=== PATIENT | male | born 1950 | race Caucasian/White ===

== ENCOUNTER 2017-09-02 07:04 | Emergency (ER) | payer MEDICARE ==
[2017-09-02 07:18] VITALS: BP 136/81
--- NOTE | 2017-09-02 08:32 | RAD ---
Indication: Left ankle injury. 4 views of left ankle demonstrates no fracture. Ankle mortise is intact. Calcifications along the Achilles tendon is noted. IMPRESSION: Calcification along the Achilles tendon. No fracture is noted.
--- NOTE | 2017-09-02 08:33 | RAD ---
Indication: Left foot injury, medial pain. 3 views of left foot demonstrates no fracture. No other bone or joint abnormalities identified. There may BE early degenerative changes of the first metatarsophalangeal joint. IMPRESSION: Probable degenerative changes of the first metatarsophalangeal joint without evidence of fracture.
--- NOTE | 2017-09-02 08:34 | RAD ---
Indication: Medial tenderness. 2 views of the left lower leg demonstrates no fracture. No other bone or joint abnormality is identified. IMPRESSION: No fracture of the left lower leg is noted.
--- NOTE | 2017-09-02 09:22 | UC ---
Mendez Gilbert Rebecca, scribed for Raine Braswell DO on 09/02/17 at 0732 . Lower Extremity/Ankle HPI - HPI Summary HPI Summary: Pt is a 67 y/o M who presents to [facility] with a CC of L ankle pain s/p fall. Pt reports that last night at 2300 he tripped over a tree stump, causing him to fall, resulting in L ankle pain and abrasions to the left knee. Ankle pain is located primarily on the medial aspect. Confirms he is able to ambulate, though it is painful and currently pain is moderate, ranked 6/10. Sx aggravated by weight bearing, alleviated by rest, unchanged by movement. Denies significant pain on the left knee. Additionally c/o pruritic bites on his right arm for 2 days in a row, being noticed each morning. Also reports chronic Achilles tendon swelling with pain on the right side for ~1 year and that the left is starting to look similarly. Denies fever, chills, N/V, CP, SOB, dizziness, HANSEN. 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 Reports cleaning significantly yesterday and that today, he has no bites. Notes that he has flat feet, so he wears high-top boots with a molded orthotic. - History of Current Complaint Chief Complaint: UCLowerExtremity Stated Complaint: ANKLE INJURY Time Seen by Provider: 09/02/17 07:21 Hx Obtained From: Patient Onset/Duration: Lasting Days - Last night, Still Present Severity Currently: Moderate Pain Intensity: 6 Pain Scale Used: 0-10 Numeric Aggravating Factor(s): Ambulation Alleviating Factor(s): Rest Able to Bear Weight: Yes - With pain - Allergies/Home Medications Allergies/Adverse Reactions: Allergies Allergy/AdvReac Type Severity Reaction Status Date / Time ENVIRONMENTAL/HAYFEVER Allergy SNEEZING,CONGESTION, Uncoded 09/02/17 07:18 ITCHY WATERY EYES Home Medications: Home Medications Emtricitabine/Tenofov Alafenam [Descovy 200-25 mg] 1 tab PO DAILY 09/02/17 [ History Confirmed 09/02/17] Fluticasone NASAL SPRAY 50MCG* [Flonase NASAL SPRAY 50MCG*] 2 spray BOTH NARES DAILY 09/02/17 [History Confirmed 09/02/17] LevoCETirizine TAB (NF) [Xyzal TAB (NF)] 5 mg PO DAILY 09/02/17 [History Confirmed 09/02/17] Montelukast Sodium TAB* [Singulair TAB*] 5 mg PO DAILY 09/02/17 [History Confirmed 09/02/17] Testosterone [Androgel] 5 gm TD DAILY 09/02/17 [History Confirmed 09/02/17] buPROPion SR TAB* [Wellbutrin SR TAB*] 150 mg PO DAILY 09/02/17 [History Confirmed 09/02/17] PMH/Surg Hx/FS Hx/Imm Hx Cardiovascular History: Hypertension - Slight - not requiring medication Respiratory History: Asthma GI/ History: Ulcer - Surgical History Surgical History: Yes Surgery Procedure, Year, and Place: 11/2011 [facility]- (right) carpal tunnel,. 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 TEENAGER; FRACTURED ARM. 1970s FRACTURED. L 4th finger trigger finger release. bilateral wrist - basal joint suture suspension - Family History Known Family History: Positive: Cardiac Disease - Social History Alcohol Use: Rare Alcohol Amount: 2 GLASSES/MONTH Substance Use Type: None Smoking Status (MU): Former Smoker Type: Cigarettes Amount Used/How Often: 1 ppd Length of Time of Smoking/Using Tobacco: 5 years Have You Smoked in the Last Year: No When Did the Patient Quit Smoking/Using Tobacco: 1983 - Immunization History Most Recent Influenza Vaccination: 2014 Most Recent Tetanus Shot: within 10 years Review of Systems Constitutional: Negative Skin: Other - L knee abrasions, pruritic bites on the right forearm Eyes: Negative ENT: Negative Respiratory: Negative Cardiovascular: Negative Gastrointestinal: Negative Genitourinary: Negative Motor: Negative Neurovascular: Negative Musculoskeletal: Arthralgia - L ankle pain, Other: - Chronic right Achilles tendon swelling and pain, mild similar sx on the left Neurological: Negative Psychological: Negative All Other Systems Reviewed And Are Negative: Yes - Comments Additional Review of Systems Comments: NEGATIVE: Fever, chills, N/V, CP, SOB, dizziness, HANSEN Physical Exam - Summary Physical Exam Summary: Appearance: Well-Appearing, No Pain Distress, Well-Nourished Eyes: conjunctiva clear, no discharge ENT: Hearing grossly normal, no muffled/hoarse voice. Neck: Normal, Supple Respiratory/Lung Sounds: Lungs clear, Normal breath sounds, No respiratory distress, No accessory muscle use Cardiovascular: RRR, No murmur Musculoskeletal: Minor abrasions over the left knee and gallegos, there is mild to moderate swelling over the medial aspect of the left ankle and he has bony tenderness to palpation over the tibia, medial malleolus and base of the 1st metatarsal with no tenderness noted over the base of the 5th metatarsal Neurological: Alert, muscle tone normal Psychiatric:Normal, age appropriate behavior Skin: Normal, Warm, Dry, Normal color Triage Information Reviewed: Yes Vital Signs: Initial Vital Signs Temp 98 F 09/02/17 07:10 Pulse 100 09/02/17 07:10 Resp 16 09/02/17 07:10 BP 136/81 09/02/17 07:10 Pulse Ox 96 09/02/17 07:10 Vital Signs Reviewed: Yes Diagnostics - Radiology Foot XR Xray Interpretation: No Acute Changes - Probable degenerative changes of the first metatarsophalangeal joint without evidence of fracture. Radiology Interpretation Completed By: Radiologist Ankle XR Xray Interpretation: No Acute Changes - Calcification along the Achilles tendon. No fracture is noted. Radiology Interpretation Completed By: Radiologist Lower Leg XR Xray Interpretation: No Acute Changes - No fracture of the left lower leg is noted. Radiology Interpretation Completed By: Radiologist Lower Extremity Course/Dx - Course Course Of Treatment: Pt is a 67 y/o M who presents to [facility] with a CC of moderate, medial L ankle pain s/p fall last night at 2300 after tripping over a tree stump. Confirms he is able to ambulate, though it is painful. Sx aggravated by weight bearing, alleviated by rest, unchanged by movement. Denies significant pain on the left knee. Additionally c/o left knee abrasions s/p fall, pruritic bites on his right arm for 2 days in a row, being noticed each morning and chronic Achilles tendon swelling with pain on the right side for ~1 year and that the left is starting to look similarly. Denies fever, chills, N/V , CP, SOB, dizziness, HANSEN. Notes that he has flat feet, so he wears high-top boots with a molded orthotic. Lower leg, ankle, and foot XR reveal no acute findings. He will be D/C with Dx of ankle sprain. Medications reviewed. Allergies reviewed. - Differential Dx/Diagnosis Provider Diagnoses: Ankle sprain Discharge - Sign-Out/Discharge Documenting (check all that apply): Discharge/Admit/Transfer - Discharge - Discharge Plan Condition: Stable Disposition: HOME Patient Education Materials: Ankle Sprain (ED), Crutch Instructions (ED), Insect Bite or Sting (ED) Referrals: Samantha Jessica MD [Primary Care Provider] - 1 Week - Billing Disposition and Condition Condition: STABLE Disposition: Home The documentation as recorded by the Mendez rivera Rebecca accurately reflects the service I personally performed and the decisions made by Michaelle pearson Michelle A, DO.
== END 2017-09-02 09:02 | disposition home or self-care (01) ==
LOC: UCEAST 07:04
DX: S93.402A Sprain of unspecified ligament of left ankle, initial encounter (principal); I10 Essential (primary) hypertension; Z87.891 Personal history of nicotine dependence; J45.909 Unspecified asthma, uncomplicated; W01.0XXA Fall on same level from slipping, tripping and stumbling without subsequent striking against object, initial encounter; Z91.09 Other allergy status, other than to drugs and biological substances; Y93.9 Activity, unspecified; Y92.34 Swimming pool (public) as the place of occurrence of the external cause
CPT/HCPCS: 99213; G0463

== ENCOUNTER 2018-01-21 13:38 | Emergency (ER) | payer MEDICARE ==
[2018-01-21 13:49] VITALS: BP 142/93
--- NOTE | 2018-01-21 14:25 | UC ---
Complaint Male HPI - HPI Summary HPI Summary: cloudy urine, some pain and burning with urination some drip from penis- multiple male partners--no fevers, back pain nausea or vomiting - History of Current Complaint Chief Complaint: UCGU Stated Complaint: URINARY COMPLAINT Time Seen by Provider: 01/21/18 14:12 Hx Obtained From: Patient Onset/Duration: Sudden Onset, Lasting Days - 1, Still Present Timing: Constant Pain Intensity: 3 Pain Scale Used: 0-10 Numeric Location: Penis Character: Burning Aggravating Factor(s): Voiding Associated Signs And Symptoms: Positive: Dysuria, Penile Discharge - Allergies/Home Medications Allergies/Adverse Reactions: Allergies Allergy/AdvReac Type Severity Reaction Status Date / Time ENVIRONMENTAL/HAYFEVER Allergy SNEEZING,CONGESTION, Uncoded 01/21/18 13:49 ITCHY WATERY EYES PMH/Surg Hx/FS Hx/Imm Hx Previously Healthy: No - hiv undectable VL Psychological History: Anxiety - Surgical History Surgical History: Yes Surgery Procedure, Year, and Place: 11/2011 [facility]- (right) carpal tunnel,. 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 TEENAGER; FRACTURED ARM. 1970s FRACTURED. L 4th finger trigger finger release. bilateral wrist - basal joint suture suspension - Family History Known Family History: Positive: Cardiac Disease - Social History Occupation: Retired Lives: Alone Alcohol Use: Rare Alcohol Amount: 2 GLASSES/MONTH Substance Use Type: None Smoking Status (MU): Former Smoker Type: Cigarettes Amount Used/How Often: 1 ppd Length of Time of Smoking/Using Tobacco: 5 years Have You Smoked in the Last Year: No When Did the Patient Quit Smoking/Using Tobacco: 1983 - Immunization History Most Recent Influenza Vaccination: 2014 Most Recent Tetanus Shot: within 10 years Review of Systems All Other Systems Reviewed And Are Negative: Yes Constitutional: Positive: Negative Skin: Positive: Negative Eyes: Positive: Negative ENT: Positive: Negative Respiratory: Positive: Negative Cardiovascular: Positive: Negative Gastrointestinal: Positive: Negative Genitourinary: Positive: Dysuria, Vaginal/Penile Discharge Motor: Positive: Negative Neurovascular: Positive: Negative Musculoskeletal: Positive: Negative Neurological: Positive: Negative Psychological: Positive: Negative Is Patient Immunocompromised?: No Physical Exam Triage Information Reviewed: Yes Appearance: Well-Appearing, No Pain Distress, Well-Nourished Vital Signs: Initial Vital Signs Temp 98.4 F 11/18/18 13:44 Pulse 100 01/21/18 13:44 Resp 18 01/21/18 13:44 BP 142/93 01/21/18 13:44 Pulse Ox 96 01/21/18 13:44 Vital Signs Reviewed: Yes Eye Exam: Normal Eyes: Positive: Conjunctiva Clear ENT Exam: Normal ENT: Positive: Normal ENT inspection, Hearing grossly normal. Negative: Trismus , Muffled voice, Hoarse voice Neck exam: Normal Neck: Positive: Supple, Nontender, No Lymphadenopathy Respiratory Exam: Normal Respiratory: Positive: Chest non-tender, Lungs clear, Normal breath sounds, No respiratory distress, No accessory muscle use Cardiovascular Exam: Normal Cardiovascular: Positive: RRR, No Murmur, Pulses Normal, Brisk Capillary Refill Abdominal Exam: Normal Abdomen Description: Positive: Nontender, No Organomegaly. Negative: CVA Tenderness (R), CVA Tenderness (L) Musculoskeletal Exam: Normal - left Musculoskeletal: Positive: Strength Intact, ROM Intact, No Edema, Other: - ruptured achellies tendon right Neurological Exam: Normal Neurological: Positive: Alert, Muscle Tone Normal Psychological Exam: Normal Skin Exam: Normal Diagnostics - Laboratory Diagnostic Studies Completed/Ordered: urine 2 leukoesterace and blood Complaint Male Course/Dx - Course Course Of Treatment: culture urine add gc/chly. start bactrim follow blood pressure with pcp will call and notify patient if antibiodic changes are necessary - Differential Dx/Diagnosis Provider Diagnoses: UTI, Hypertension in poor control Discharge - Sign-Out/Discharge Documenting (check all that apply): Patient Departure All imaging exams completed and their final reports reviewed: No Studies - Discharge Plan Condition: Stable Disposition: HOME Prescriptions: Sulfamethox/Trimethoprim DS* [Bactrim DS 800/160 TAB*] 1 tab PO BID #14 tab Patient Education Materials: Urinary Tract Infection in Men (ED), Hypertension (ED) Referrals: Samantha Jessica MD [Primary Care Provider] - 2 Weeks - Billing Disposition and Condition Condition: STABLE Disposition: Home
== END 2018-01-21 14:35 | disposition home or self-care (01) ==
LOC: UCEAST 13:38
DX: N39.0 Urinary tract infection, site not specified (principal); I10 Essential (primary) hypertension; Z91.048 Other nonmedicinal substance allergy status; Z87.891 Personal history of nicotine dependence
CPT/HCPCS: 81003; 87077; 87086; 87184; 87186; 87491; 87591; 99212; G0463

== ENCOUNTER 2018-03-31 17:15 | Emergency (ER) | payer MEDICARE ==
--- NOTE | 2018-03-31 17:25 | UC ---
Nausea/Vomiting/Diarrhea HPI - HPI Summary HPI Summary: 67 y/o male presents to the urgent care c/o diarrhea since Monday03/28/2018. Pt reports he ate the night before some spaghetti with sausage and had anal sex. The next day he woke up w/ diarrhea. That day he had about 12 episodes of watery diarrhea. The next day he had 6 episodes and he tok 1 tab PO of Imodium. Yesterday, he had only 4 episodes and he took another tab of Imodium PO and today 3 episodes. He thinks it is resolving. He is HIV positive. He had similar episode last year which resolved spontaneously. However he is traveling [place] and he wants to make sure stool is clear. He is also concern on Giardia. He has been drinking fluids. Yesterday he stated eating solids, Broth, chicken and rice whcih he has tolerated. Pt denies abdominal pain , N/V, dizziness, SOB, chest pain, fever, HANSEN, eating outside or recent travel outside the country. - History of Current Complaint Stated Complaint: DIARRHEA Time Seen by Provider: 03/31/18 17:23 Hx Obtained From: Patient Onset/Duration: Sudden Onset, Lasting Days - 3 days, Still Present, Worse Since - first day, resolving now Timing: Intermittent Episodes Lasting: - seconds Severity Initially: Moderate Severity Currently: Mild Pain Intensity: 0 Pain Scale Used: 0-10 Numeric Location: Diffuse Character: Cramping Aggravating Factor(s): Nothing Alleviating Factor(s): Bowel Movement, OTC Analgesics - started to take Imodium PO 2 days ago, NPO Nausea/Vomiting Presence: None Diarrhea Presence: Yes Diarrhea Frequency: Every 3-4 hours Diarrhea Duration: 2-3 days Diarrhea Characteristics: Watery, Malodorous - Risk Factors Influenza Risk Factors: Negative Surgical Obstruction Risk Factor(s): Negative - Allergies/Home Medications Allergies/Adverse Reactions: Allergies Allergy/AdvReac Type Severity Reaction Status Date / Time ENVIRONMENTAL/HAYFEVER Allergy SNEEZING,CONGESTION, Uncoded 03/31/18 17:21 ITCHY WATERY EYES PMH/Surg Hx/FS Hx/Imm Hx Previously Healthy: Yes Other GI/ History: IBS Psychological History: Anxiety, Depression Other History Of: HIV - Surgical History Surgical History: Yes Surgery Procedure, Year, and Place: 11/2011 [facility] [place]- (right) carpal tunnel,. 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 TEENAGER; FRACTURED ARM. 1970s FRACTURED. L 4th finger trigger finger release. bilateral wrist - basal joint suture suspension - Family History Known Family History: Positive: Cardiac Disease - Social History Occupation: Employed Full-time Lives: With Family Alcohol Use: Rare Alcohol Amount: 2 GLASSES/MONTH Substance Use Type: None Smoking Status (MU): Former Smoker Type: Cigarettes Amount Used/How Often: 1 ppd Length of Time of Smoking/Using Tobacco: 5 years Have You Smoked in the Last Year: No When Did the Patient Quit Smoking/Using Tobacco: 1983 - Immunization History Most Recent Influenza Vaccination: 2014 Most Recent Tetanus Shot: within 10 years Review of Systems All Other Systems Reviewed And Are Negative: Yes Constitutional: Positive: Negative Skin: Positive: Negative Eyes: Positive: Negative ENT: Positive: Negative Respiratory: Positive: Negative Cardiovascular: Positive: Negative Gastrointestinal: Positive: Diarrhea - x 3 days. w/ 3 epsidoes today Genitourinary: Positive: Negative Motor: Positive: Negative Neurovascular: Positive: Negative Musculoskeletal: Positive: Negative Neurological: Positive: Negative Psychological: Positive: Negative Is Patient Immunocompromised?: Yes - Hx of HIV Physical Exam - Summary Physical Exam Summary: Vital Signs Reviewed: Yes General:Patient is a well developed and nourished male who is sitting comfortable in the examining table. Patient is not in any acute respiratory distress. Eyes: Positive: Conjunctiva Clear - PERRLA, EOMI, fundi grossly normal ENT: Positive: Normal ENT inspection, Hearing grossly normal, Pharynx normal, TMs normal Neck: Positive: Supple, Nontender, No Lymphadenopathy Respiratory: Positive: Chest non-tender, Lungs clear, Normal breath sounds, No respiratory distress Cardiovascular: Positive: RRR,S1 and S2 present, No Murmur, Pulses Normal, Brisk Capillary Refill Abdomen Description: Positive: Nontender, Abd: Flat with no distention. No surface trauma, scars, incisions. hyperactive bowel sounds present in all four quadrants. No tenderness, guarding, rigidity to palpation. No masses palpated, no pulsation in epigastric area. No organomegaly. Negative [place] signs. No periumbilical tenderness. No rebound in the lower quadrants. NT over [place] point. Good femoral pulses bilaterally. No hernia noted. No CVAT bilaterally Musculoskeletal: Positive: Strength Intact, ROM Intact, No Edema,FROM in all major joints, no edema, no cyanosis or clubbing. Neuro: Alert and oriented x 3. No acute neurological deficits. Speech is normal. Psychological: WNL Skin: Dry and warm Triage Information Reviewed: Yes Naus/Vom/Diarrhea Course/Dx - Course Course Of Treatment: 67 y/o male presents to the urgent care c/o diarrhea since Monday03/28/2018. Pt reports he ate the night before some spaghetti with sausage and had anal sex. The next day he woke up w/ diarrhea. That day he had about 12 episodes of watery diarrhea. The next day he had 6 episodes and he tok 1 tab PO of Imodium. Yesterday, he had only 4 episodes and he took another tab of Imodium PO and today 3 episodes. He thinks it is resolving. He is HIV positive. He had similar episode last year which resolved spontaneously. However [place] is traveling [place] and he wants to make sure stool is clear. He is also concern on Giardia. He has been drinking fluids. Yesterday he stated eating solids, Broth, chicken and rice whcih he has tolerated. Pt denies abdominal pain, N/V, dizziness, SOB, chest pain, fever, HANSEN, blood in the stool, eating outside or recent travel outside the country. Hx obtained. PE: WNL, no signs of dehydration. Pt is hemodynamically stable. Pt couldn't give us a stool sample at the clinic sicne he had a BM about 1hr ago. Pt advised to bring back the stool, educated in how to do it. Stool culture ordered, O&P, Lactoferrin. E.Coli also ordered. Pt will be notified of the results for further treatment. Pt advised to continue w/ Imodium PO to alleviate Diarrhea, increase hydration, eat soft meals, and rest. Pt Rx Metronidazole PO only to start if Giardia or Cryptosporidium positive since he is traveling in a few days. Also advised If Symptoms worsen to go immediately to the ER for further management. Otherwise f /u with PCP if not complete resolution diarrhea and stool culture are all negative. Pt's BP is elevated today advised to decrease salt in diet, monitor BP and f/u with PCP for further management. Pt understood and agreed with plan of care. Left the clinic ambulating and hemodynamically stable. - Differential Dx/Diagnosis Differential Diagnoses - Male: Gastroenteritis (Viral), Gastroenteritis ( Bacterial), Diarrhea, Colitis, Other - HIV related diarrhea, Provider Diagnosis: Acute diarrhea, Elevated BP without diagnosis of hypertension Condition At Discharge: Stable Discharge - Sign-Out/Discharge Documenting (check all that apply): Patient Departure - D/C home All imaging exams completed and their final reports reviewed: No Studies - Discharge Plan Condition: Stable Disposition: HOME Prescriptions: metroNIDAZOLE TAB* [Flagyl 250 mg TAB*] 250 mg PO TID #21 tab Patient Education Materials: Acute Diarrhea (ED) Referrals: Samantha Jessica MD [Primary Care Provider] - 3 Days Additional Instructions: 1- Please increase fluid intake w/ Gatorade or Pedialyte OTC . Eat small portions of soft meals. 2-Continue taking Imodium PO to alleviate symptoms. 3- If not improvement in 2 days w/ the Imodium PO. 3- Stool culture ordered. Please collected as indicated and bring it to the lab for further evaluation and treatment. Since you are travelling in 4 days and diarrhea has not improve Please start taking Metronidazole PO or wait for stool culture result sicne we ar screenign for Giardia and cryptospodirium also. 4- If you develop fever and abdominal pain w/ recurrent episodes of diarrhea please go immediately to the ER, otherwise f/u with your PCP if diarrhea not resolving in 2-3 days of stool cultures are all negative. 5-Your BP is elevated today. please decrease salt in your diet, monitor BP and if it continues to be elevated please f/u with your PCP for further management. - Billing Disposition and Condition Condition: STABLE Disposition: Home
[2018-03-31 17:34] VITALS: BP 153/85
--- NOTE | 2018-04-03 17:39 | UC ---
- Progress Note Progress Note: Stool with + Klebsiella Oxytoca Attempted to call pt - number "not in service" Attempted to contact Dr. Andersen - not front end developer javascript html css through page office and not front end developer javascript html css through office Page to Dr. Cira Jessica - pcp - awating call back If unable to contact,chas paul with PCP or Dr. Andersen tomorrow ljj 04/03/18 17:15 Course/Dx - Diagnoses Provider Diagnoses: Acute diarrhea, Elevated BP without diagnosis of hypertension Discharge - Sign-Out/Discharge Documenting (check all that apply): Post-Discharge Follow Up All imaging exams completed and their final reports reviewed: No Studies - Discharge Plan Condition: Stable Disposition: HOME Prescriptions: metroNIDAZOLE TAB* [Flagyl 250 mg TAB*] 250 mg PO TID #21 tab Patient Education Materials: Acute Diarrhea (ED) Referrals: Samantha Jessica MD [Primary Care Provider] - 3 Days Additional Instructions: 1- Please increase fluid intake w/ Gatorade or Pedialyte OTC . Eat small portions of soft meals. 2-Continue taking Imodium PO to alleviate symptoms. 3- If not improvement in 2 days w/ the Imodium PO. 3- Stool culture ordered. Please collected as indicated and bring it to the lab for further evaluation and treatment. Since you are travelling in 4 days and diarrhea has not improve Please start taking Metronidazole PO or wait for stool culture result sicne we ar screenign for Giardia and cryptospodirium also. 4- If you develop fever and abdominal pain w/ recurrent episodes of diarrhea please go immediately to the ER, otherwise f/u with your PCP if diarrhea not resolving in 2-3 days of stool cultures are all negative. 5-Your BP is elevated today. please decrease salt in your diet, monitor BP and if it continues to be elevated please f/u with your PCP for further management. - Billing Disposition and Condition Condition: STABLE Disposition: Home
--- NOTE | 2018-04-03 18:03 | UC ---
- Progress Note Progress Note: Spoke with Dr. Cira Jessica - Confirmed our number of record is the same as hers She will attempt to call pt - although I got "no longer in service" message no change in management directed by KELLY beck 04/03/18 Course/Dx - Diagnoses Provider Diagnoses: Acute diarrhea, Elevated BP without diagnosis of hypertension Discharge - Sign-Out/Discharge Documenting (check all that apply): Post-Discharge Follow Up All imaging exams completed and their final reports reviewed: No Studies - Discharge Plan Condition: Stable Disposition: HOME Prescriptions: metroNIDAZOLE TAB* [Flagyl 250 mg TAB*] 250 mg PO TID #21 tab Patient Education Materials: Acute Diarrhea (ED) Referrals: Samantha Jessica MD [Primary Care Provider] - 3 Days Additional Instructions: 1- Please increase fluid intake w/ Gatorade or Pedialyte OTC . Eat small portions of soft meals. 2-Continue taking Imodium PO to alleviate symptoms. 3- If not improvement in 2 days w/ the Imodium PO. 3- Stool culture ordered. Please collected as indicated and bring it to the lab for further evaluation and treatment. Since you are travelling in 4 days and diarrhea has not improve Please start taking Metronidazole PO or wait for stool culture result sicne we ar screenign for Giardia and cryptospodirium also. 4- If you develop fever and abdominal pain w/ recurrent episodes of diarrhea please go immediately to the ER, otherwise f/u with your PCP if diarrhea not resolving in 2-3 days of stool cultures are all negative. 5-Your BP is elevated today. please decrease salt in your diet, monitor BP and if it continues to be elevated please f/u with your PCP for further management. - Billing Disposition and Condition Condition: STABLE Disposition: Home
== END 2018-03-31 18:17 | disposition home or self-care (01) ==
LOC: UCEAST 17:15
DX: R19.7 Diarrhea, unspecified (principal); R03.0 Elevated blood-pressure reading, without diagnosis of hypertension; Z87.891 Personal history of nicotine dependence
CPT/HCPCS: 99212; G0463

== ENCOUNTER 2019-02-03 08:49 | Emergency (ER) | payer MEDICARE ==
[2019-02-03 09:18] VITALS: BP 149/98
--- NOTE | 2019-02-03 09:50 | UC ---
Headache HPI - HPI Summary HPI Summary: Patient is a 68-year-old gentleman who states for 2 years she's been having headaches. Patient states he is intermittently mentioned to his PCP Dr. Jessica. Patient states presently one month ago she referred him to physical therapy. Patient's is here for episodes of physical therapy that may market improvement. Patient states he then went to [place] for 10 days and he was headache free the whole time he was there. Patient states return from [place] last Monday. Patient started Monday his headaches return. Patient states they're the same headaches been having intermittent for 2 years. States that sometimes are worse when he tends to move his head around. No nausea or vomiting. No vision changes. No trauma. No fever, chills, rash. Patient's been able to eat and drink. Patient has applied heat packs, taken NSAIDs, and acetaminophen with little improvement. Patient states the only thing that seems to work is a follow-up neck support brace that he intermittently uses. Patient has appointment with his primary care tomorrow but was feeling panicky today because of a headache so he decided to come here. Patient does have a prescription for Xanax A takes intermittently for panic attacks but did not try it. Patient does take BuSpar daily as well. Patient also has a sleeping aid medication has not been taking. Patient denies any sinus congestion sore throat or ear pain. Patient's medications was entered in the EMR mitral measures were reviewed. Patient reports he intermittently uses THC but has not tried this week - History Of Current Complaint Chief Complaint: UCHeadache Stated Complaint: HEADACHE Time Seen by Provider: 02/03/19 09:49 Hx Obtained From: Patient, Other: - PCP Onset/Duration: Gradual Onset, Lasting Days Currently Pain Is: Moderate Pain Intensity: 8 Timing: Intermittent, Lasting: - Allergies/Home Medications Allergies/Adverse Reactions: Allergies Allergy/AdvReac Type Severity Reaction Status Date / Time ENVIRONMENTAL/HAYFEVER Allergy SNEEZING,CONGESTION, Uncoded 02/03/19 09:04 ITCHY WATERY EYES Home Medications: Home Medications Ibuprofen TAB* [Motrin TAB* 600 MG] 600 mg PO ONCE 02/03/19 [History Confirmed 02/03/19] Vortioxetine Hydrobromide [Brintellix] 10 mg PO DAILY 02/03/19 [History Confirmed 02/03/19] PMH/Surg Hx/FS Hx/Imm Hx Cardiovascular History: Hypertension Psychological History: Anxiety, Depression Other History Of: HIV - Surgical History Surgical History: Yes Surgery Procedure, Year, and Place: 11/2011 [facility]- (right) carpal tunnel,. 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 TEENAGER; FRACTURED ARM. 1970s FRACTURED. L 4th finger trigger finger release. bilateral wrist - basal joint suture suspension - Family History Known Family History: Positive: Cardiac Disease, Non-Contributory - Social History Lives: With Family Alcohol Use: None Alcohol Amount: 2 GLASSES/MONTH Substance Use Type: Marijuana Substance Use Comment - Amount & Last Used: once a week Smoking Status (MU): Former Smoker Type: Cigarettes Amount Used/How Often: 1 ppd Length of Time of Smoking/Using Tobacco: 5 years Have You Smoked in the Last Year: No When Did the Patient Quit Smoking/Using Tobacco: 1983 - Immunization History Most Recent Influenza Vaccination: 2014 Most Recent Tetanus Shot: within 10 years Review of Systems All Other Systems Reviewed And Are Negative: Yes Constitutional: Positive: Negative. Negative: Fever Skin: Positive: Negative. Negative: Rash Eyes: Positive: Negative. Negative: Blurred Vision, Photophobia ENT: Negative: Nasal Discharge, Sinus Congestion, Sinus Pain/Tenderness Respiratory: Positive: Negative Cardiovascular: Positive: Negative Gastrointestinal: Positive: Negative. Negative: Nausea Genitourinary: Positive: Negative Motor: Positive: Negative Neurovascular: Positive: Negative Musculoskeletal: Positive: Negative Neurological: Negative: Headache Is Patient Immunocompromised?: No - report Physical Exam - Summary Physical Exam Summary: Vital Signs Reviewed: Yes A+Ox3, appropriate, ambulating around clinic, no difficulty with balance, speech Eyes: Conjunctiva Clear, LANCE. EOM intact and full, no photophobia crisp fundoscopic ENT: Hearing grossly normal TM x 2 clear, turbinates wnl, no PND, no pain with palp sinuses, mmoist, uvula midline, no exudate, no erythema Neck: Positive: Supple, no temporal artery pain Respiratory: Positive: No respiratory distress, No accessory muscle use + CTA throughout no w/r Cardiovascular: RRR nl s1, s2 no m/r CBT <2 sec, no bruits b/l abd soft + BS nt/nd no guarding, no distension Musculoskeletal Exam: HAYS x 4 without difficulty Strength Intact, ROM Intact Neurological: Positive: Alert, + sensation throughout, full AROM, neg rhomberg , no difficulty with balance and ambulation Psychological: Positive: Normal Response To examiner Skin: Positive: no rash, no ecchymosis Triage Information Reviewed: Yes Vital Signs: Initial Vital Signs Temp 98.2 F 02/03/19 09:10 Pulse 81 02/03/19 09:10 Resp 18 02/03/19 09:10 BP 149/98 02/03/19 09:10 Pulse Ox 98 02/03/19 09:10 Headache Course/Dx - Course Course Of Treatment: Patient presents to urgent care reporting recurrent headache. Patient states he 's had them intermittently for 2 years. Patient states early in January he was referred to physical therapy by his PCP. Patient states he was better after 4 sessions and has been today's [place] when he was pain-free. Patient returned from one of this past Monday. Patient states starting on Monday to headaches came back. Patient states they're the same headaches that he's been having for the last 2 years. States perhaps her slightly more intense. No photophobia. No nausea vomiting. No trauma. No fevers, chills, rash. Patient states feels like could be stress and muscle tightness. Patient does have a neck support colllar that has helped. Pt states today he had a panic attack so came for eval. Pt has appt with PCP tomorrow - did not call her. Pt did not take his xanax or sleep medication On exam, BP slightly increased Pt mildly anxious, but non -toxic, non-focal examination. Pt overall well appearing. Spoke with pt's PCP At this time, will Rx flexeril I had a long conversation with pt regarding sedative effects of this medication. Will not take concominant Xanax or Somata will keep appt tomorrow with pcp if sx worsen or change, pt will contact 911 for eval in ED. Pt plan to keep appt tomorrow with PCP Pt comfortable and in agreement with plan - Differential Dx/Diagnosis Provider Diagnosis: Headache , short unilat neuralgiform, w/conjunctival injection/tearing Discharge ED - Sign-Out/Discharge Documenting (check all that apply): Patient Departure All imaging exams completed and their final reports reviewed: No Studies - Discharge Plan Condition: Stable Disposition: HOME Prescriptions: Cyclobenzaprine TAB* [Flexeril 10 MG TAB*] 5 - 10 mg PO BID PRN #10 tab PRN Reason: neck tension Patient Education Materials: General Headache (ED) Referrals: Samantha Jessica MD [Primary Care Provider] - Additional Instructions: - Stay well hydrated. Drink plenty of nonalcoholic, non-caffeinated. - Okay to alternate ibuprofen (Advil, Motrin) and Tylenol (acetaminophen) every 3 hours for pain or fever. Take with food. Do NOT take for more than 4-5 days. - Apply heat to the muscles in the back of her neck. When she muscles are warm slow gentle stretching exercises. - Okay to wear neck support as previous for discomfort - Okay to take Flexeril, muscle relaxer, as prescribed. This medication is very sedating. Do not drive, operative treatment, or drink alcohol taking this medication. He should not take other sedating medications such as Xanax for at least 4-6 hours after taking Flexeril and to you know how this medication affects you - Keep you appointment with Dr. Jessica as scheduled. If her symptoms change, worsen, throwing up, or any other concerns is recommended to contact 911 and go to emergency department for further evaluation and treatment. - Billing Disposition and Condition Condition: STABLE Disposition: Home
--- OUTSIDE RECORDS SUMMARY | 2019-02-05 15:56 | XMS REPORT | Continuity of Care Document ---
:1950 External Reference #:[id number] Author Name Mk Mccauley M.D. (transmitted by agent of provider Lucita Lauren ) Address [address] [place] [id number] Care Team Providers Name Role Phone Samantha Jessica MD - Internal Medicine Care Team Information Skidder Problems Active Problems Provider Date Acquired trigger finger Lyida Ortiz M.D. Onset: 02/19/2014 Obstructive sleep apnea syndrome Kaylin Whitman MD Onset: 02/19/2014 Insomnia Kaylin Whitman MD Onset: 02/19/2014 Social History Type Date Description Comments Sex Unknown Cigarette Use Quit 40 Years Ago ETOH Use Occasionally consumes alcohol Tobacco Use Start: Unknown End: Patient is a former quit 40 yrs ago Unknown smoker Recreational Drug Use Never Used Drugs Smoking Status Reviewed: 12/12/18 Patient is a former quit 40 yrs ago smoker Allergies, Adverse Reactions, Alerts Active Allergies Reaction Severity Comments Date [place]z rash 05/09/2017 Environmental Sneezing, itchy eyes Seasonal 04/03/2018 Inactive Allergies NKDA 11/17/2012 Medications Active Medications SIG Qnty Indications Ordering Date Provider [employer] provide pt with G47.33 Kaylin Whitman, heated tubingMD 8 necessary pap supplies Zaleplon take 1-3 capsule by sahra Madsen, 5mg mouth as needed for DNP, RN, [facility] 8 Capsules sleep Trintellix TK 1/2 Tablet By Unknown 10mg Mouth Daily For The 0 Tablets First 6 Days And Then 1 Tablet Daily Ibuprofen 1 by mouth 3 times Unknown 200mg daily as needed 0 Capsules Proair HFA 2 puffs by mouth Unknown every 4 hours as 0 108(90Base) mcg/Act needed Aerosol Vitamin B-12 1 by mouth every Unknown day 0 1000mcg Tablets Vitamin D3 Super 1 by mouth every Unknown Strength day 0 2000Unit Capsules Voltaren apply 2 grams 4 Unknown 1% Gel times daily as 0 needed Cialis one tab by mouth as Unknown 20mg Tablets needed 0 Methocarbamol 1-2 by mouth 4 Unknown 500mg times a day as 0 Tablets needed for spasm Alprazolam 1/2 - 1 tab twice Unknown 0.5mg daily as needed for 0 anxiety Patanol 1 drop both eyes 5ml Unknown 0.1% twice a day as 0 Solution needed allergies Fluticasone 2 sprays each 16units Unknown Propionate nostril daily as 0 needed 50mcg/Act Suspension Asmanex HFA 1 inhalation twice Unknown daily 0 200mcg/Act Aerosol Tivicay take 1 tablet by 30tabs Emily Jimenez 50mg mouth once daily Zeb MUD MIXER HELPER 0 Tablets Buspirone HCL 1.5 tab by mouth 60tabs Unknown 7.5mg twice a day 0 Tablets Nortriptyline HCL 4 caps by mouth at 90caps Unknown bedtime 0 10mg Capsules Androgel apply 2 packets 45Packets Unknown 25mg/2.5GM transdermally every 0 (1%) Gel day Descovy take 1 tablet every 30tabs [facility]-25[facility] day APOLONIA Carrington 0 Tablets Lamotrigine 1 by mouth twice a 60tabs Unknown 200mg day 0 Tablets Singulair daily Unknown 10mg 0 Xyzal Allergy 24HR 1 by mouth every Unknown day 0 5mg Tablets Medications Administered in Office Medication SIG Qnty Indications Ordering Provider Date No Injection Lyndon Petersen MD 11/30/2016 Injection Celestone 3 mg and 3mg Lyndon Petersen MD 10/21/2016 Injection Celestone 3 mg and 3mg Lyndon Petersen MD 01/18/2016 Injection Celestone 3 mg and 3mg RASHEL Brown 06/18/2014 Injection Celestone 3 mg and 3mg Lydia Box-Young, 09/18/2013 Injection M.D. Celestone 3 mg and 3mg Lydia Box-Young, 05/22/2013 Injection M.D. Depomedrol 80MG Jaziel De Luna M.D. 11/07/2012 Injection Celestone 3 mg and 3mg Lydia Box-Young, 07/02/2012 Injection M.D. Celestone 3 mg and 3mg Lydia Box-Young, 07/02/2012 Injection M.D. Depomedrol 80MG Jaziel De Luna M.D. 04/12/2011 Injection Depomedrol 80MG Jimmie Salvador M.D. 04/07/2010 Injection Immunizations CPT Code Status Date Vaccine Lot # [id number] Given 12/12/2017 Influenza Virus Vaccine, Quadrivalent, Split, [id number] Preservative Free [id number] Given 11/28/2016 Influenza Virus Vaccine, Quadrivalent, Split, Preservative Free 44057 Given 10/13/2016 Hepatitis B Vaccine Adult Dosage 54241 Given 10/13/2016 Pneumonia Vaccine 57185 Given 03/31/2016 Hepatitis B Vaccine Adult Dosage 61974 Given 08/16/2015 Hepatitis B Vaccine Adult Dosage 29233 Given 01/16/2014 Pneumococcal Conjugate Vaccine 13 Valent For Intramuscular Use 83615 Given 07/12/2012 Meningococcal Immunization 68293 Given 05/19/2011 Pneumonia Vaccine 74123 Given 05/09/2011 Tetanus And Diptheria (Td) For Adult Use Preservative Free 88505 Given 04/06/2006 Pneumonia Vaccine Vital Signs Date Vital Result Comment 12/12/2018 8:47am Height 68 inches 5'8" Weight 227.00 lb Heart Rate 91 /min BP Systolic 145 mmHg end of visit/sitting BP Diastolic 90 mmHg end of visit/sitting BP Systolic Sitting 161 mmHg BP Diastolic Sitting 97 mmHg Body Temperature 97.4 F O2 % BldC Oximetry 97 % BMI (Body Mass Index) 34.5 kg/m2 10/09/2018 9:11am Height 68 inches 5'8" Weight 227.00 lb Heart Rate 100 /min BP Systolic 134 mmHg BP Diastolic 84 mmHg Respiratory Rate 18 /min O2 % BldC Oximetry 96 % BMI (Body Mass Index) 34.5 kg/m2 Results Test Date Facility Test Result H/L Range Note CBC Auto 12/04/2018 [facility] White Blood 5.3 10^3/uL Normal 3.5-10.[address] [place] [address] [phone] Red Blood Count 4.74 10^6/uL Normal 4.18-5.48 Hemoglobin 15.3 g/dL Normal 14.0-18.0 Hematocrit 43 % Normal 42-52 Mean Corpuscular Volume 92 fL Normal 80-94 Mean Corpuscular Hemoglobin 32 pg High 27-31 Mean Corpuscular HGB Conc 35 g/dL Normal 31-36 Red Cell Distribution Width 13 % Normal 10-15 Platelet Count 174 10^3/uL Normal 150-450 Mean Platelet Volume 6.9 fL Low 7.4-10.4 Abs Neutrophils 3.3 10^3/uL Normal 1.5-7.7 Abs Lymphocytes 1.4 10^3/uL Normal 1.0-4.8 Abs Monocytes 0.3 10^3/uL Normal 0-0.8 Abs Eosinophils 0.3 10^3/uL Normal 0-0.6 Abs Basophils 0.0 10^3/uL Normal 0-0.2 Abs Nucleated RBC 0.0 10^3/uL Granulocyte % 61.7 % Lymphocyte % 26.4 % Monocyte % 5.9 % Eosinophil % 5.3 % Basophil % 0.7 % Nucleated Red Blood Cells % 0.2 Comp Metabolic 12/04/2018 [facility] Sodium 141 mmol/L Normal 135-[address] [place] [address] [phone] Potassium 4.2 mmol/L Normal 3.5-5.0 Chloride 107 mmol/L Normal 101-111 Co2 Carbon Dioxide 28 mmol/L Normal 22-32 Anion Gap 6 mmol/L Normal 2-11 Glucose 153 mg/dL High 70-100 Blood Urea Nitrogen 21 mg/dL Normal 6-24 Creatinine 1.24 mg/dL High 0.67-1.17 BUN/Creatinine Ratio 16.9 Normal 8-20 Calcium 9.3 mg/dL Normal 8.6-10.3 Total Protein 6.6 g/dL Normal 6.4-8.9 Albumin 4.3 g/dL Normal 3.2-5.2 Globulin 2.3 g/dL Normal 2-4 Albumin/Globulin Ratio 1.9 Normal 1-3 Total Bilirubin 0.70 mg/dL Normal 0.2-1.0 Alkaline Phosphatase 64 U/L Normal 34-104 Alt 27 U/L Normal 7-52 Ast 20 U/L Normal 13-39 Egfr Non- 57.8 >60 Egfr 69.9 >60 1 HIV-1 Rna 12/04/2018 [facility] HIV-1 Rna Undetected Undetected 2 QNT By PCR [address] (PCR) copies/[place] [address] [phone] 1 Because ethnic data is not always readily available, this report includes an eGFR for both -Americans and non- Americans. The National Kidney Disease Education Program (NKDEP) does not endorse the use of the MDRD equation for patients that are not between the ages of 18 and 70, are , have extremes of body size, muscle mass, or nutritional status, or are non- or non-. According to the National Kidney Foundation, irrespective of diagnosis, the stage of the disease is based on the level of kidney function: Stage Description GFR(mL/min/1.73 m(2)) 1 Kidney damage with normal or decreased GFR 90 2 Kidney damage with mild decrease in GFR 60-89 3 Moderate decrease in GFR 30-59 4 Severe decrease in GFR 15-29 5 Kidney failure <15 (or dialysis) 2 Result in log copies/mL is Undetected. ADDITIONAL INFORMATION The quantification range of this assay is 20 to 10,000,000 copies/mL (1.30 log to 7.00 log copies/mL). Testing was performed using the nathaly HIV-1 test ([employer] with the nathaly 6800 System. This test has been modified from the delivery sales worker's instructions. Its performance characteristics were determined by [facility] in a manner consistent with CLIA requirements. This test has not been cleared or approved by the U.S. Food and Drug Administration. Test Performed by: [facility] [address] [place] [address] Puff Ironer: Homero Henderson M.D. Ph.D.; [facility]# [id number] Procedures Description No Information Available Medical Devices Description No Information Available Encounters Type Date Location Provider Dx Diagnosis Office Visit 10/09/2018 [facility] Vivienne Madsen, G47.33 Obstructive sleep 9:[facility]a [facility], [facility] apnea (adult) [facility] (pediatric) G25.81 Restless legs syndrome F51.04 Psychophysiologic insomnia Assessments Date Code Description Provider 12/12/2018 Z21 Asymptomatic human immunodeficiency Mk Mccauley M.D. virus [HIV] infection status 12/12/2018 Z79.899 Other [facility] (current) drug Mk Mccauley M.D. therapy 12/12/2018 Z87.440 Personal history of urinary (tract) Mk Mccauley M.D. infections 12/12/2018 N50.82 Scrotal pain Mk Mccauley M.D. 10/09/2018 G47.33 Obstructive sleep apnea (adult) Vivienne Madsen DNP, RN, (pediatric) [facility] 10/09/2018 G25.81 Restless legs syndrome Vivienne Madsen DNP RN, [facility] 10/09/2018 F51.04 Psychophysiologic insomnia Vivienne Madsen DNP, RN, [facility]- Plan of Treatment Future Appointment(s):04/16/2019 8:15 am - Vivienne Madsen DNP, RN, [facility] at [facility]12/12/2018 - Mk Mccauley M.D.Z21 Asymptomatic human immunodeficiency virus infection statusComments:Pneumovax next visitWill call with flu shot availability or he will go to [facility] up:6 months 1 month with RN for flu shotZ79.899 Other [facility] (current) drug mwfrqmqJ29.440 Personal history of urinary (tract) ikpzealwdpF39.82 Scrotal painComments:could be a resolving hematoma, he will follow it and call if not continuing to improve. He says thediscoloration is normal for the process. Functional Status Description No Information Available Mental Status Description No Information Available Referrals Description No Information Available
== END 2019-02-03 10:30 | disposition home or self-care (01) ==
LOC: UCEAST 08:49
DX: G44.059 Short lasting unilateral neuralgiform headache with conjunctival injection and tearing (SUNCT), not intractable (principal); Z21 Asymptomatic human immunodeficiency virus [HIV] infection status; I10 Essential (primary) hypertension; J45.909 Unspecified asthma, uncomplicated; F41.9 Anxiety disorder, unspecified; F32.9 Major depressive disorder, single episode, unspecified; Z79.899 Other long term (current) drug therapy; Z91.09 Other allergy status, other than to drugs and biological substances; Z87.891 Personal history of nicotine dependence
CPT/HCPCS: 36415; 70450; 80053; 83605; 83735; 84443; 84484; 85025; 86140; 93005; 96361; 96374; 96375; 96376; 99212; 99284; G0463; J1100; J1885; J2765; J3360; J3490

== ENCOUNTER 2019-02-03 17:16 | Emergency (ER) | payer MEDICARE ==
--- NOTE | 2019-02-03 18:43 | ED ---
Headache - HPI Summary HPI Summary: Patient is a 68 y/o M presenting to the ED for a chief complaint of headache that began 4 days ago. Patient was seen at [facility] on 02/03/19 and prescribed Flexaril without relief. Since 01/30/19, patient describes he began to have a headache with a "splitting" sensation that starts at the occipital area, radiating to the frontal area. He rates his current pain as 7/10 in severity, but the pain was previously 10/10 in severity. He also notes 2 episodes of nausea and vomiting, once before going to [facility] and the other after taking Flexaril, and a "flushed" sensation. Patient also reports balance problems for several years and bilateral LE pain that he attributes to getting older. Patient denies any fever, chills, erythema of eyes, sore throat, blurred vision, photophobia, CP, SOB, cough, abdominal pain, dysuria, hematuria , edema, rash, paresthesia, numbness, lightheadedness, or dizziness. Patient denies any aggravating or alleviating factors. His headache first began one year ago and he complained of the headache to his PCP who recommended physical therapy. Patient completed 2 weeks of physical therapy and had improvement of his headache. He went on a trip to [place] for 10 days without recurrence of his headache. He notes seeing a chiropractor in the past, but not for his current symptoms. Patient denies seeking prior treatment for migraines, seeing a neurologist for his headache, or head trauma. PMHx is significant for HIV that has been undetectable for 10 years. He denies taking any medications for HTN. Patient denies alcohol or tobacco use. He has an appointment with Dr. Samantha Jessica on 02/04/19. - History Of Current Complaint Chief Complaint: EDHeadache Stated Complaint: HEADACHE Time Seen by Provider: 02/03/19 18:09 Hx Obtained From: Patient Onset/Duration: Gradual Onset, Started weeks ago, Still Present Initially Headache Was: Severe Currently Pain Is: Severe Timing: Constant Character: Sharp - "Splitting" Location of Headache: Diffuse - From occipital to frontal Aggravating Factor: Nothing Allevating Factors: Nothing Associated Signs And Symptoms: Nausea, Vomiting - Allergies/Home Medications Allergies/Adverse Reactions: Allergies Allergy/AdvReac Type Severity Reaction Status Date / Time ENVIRONMENTAL/HAYFEVER Allergy SNEEZING,CONGESTION, Uncoded 02/03/19 09:04 ITCHY WATERY EYES PMH/Surg Hx/FS Hx/Imm Hx Previously Healthy: Yes Endocrine/Hematology History: Reports: Other Endocrine/Hematological Disorders - HIV Denies: Hx Diabetes Cardiovascular History: Reports: Hx Angina Denies: Hx Coronary Artery Disease, Hx Hypercholesterolemia, Hx Hypertension , Hx Myocardial Infarction, Hx Pacemaker/ICD, Other Cardiovascular Problems/ Disorders Respiratory History: Reports: Hx Asthma - INHALERS, Hx Sleep Apnea Denies: Hx Chronic Obstructive Pulmonary Disease (COPD) GI History: Reports: Hx Irritable Bowel - ALWAYS LOOSE STOOL, Hx Ulcer - DUODENAL ULCER 30 YRS AGO History: Denies: Other Problems/Disorders Musculoskeletal History: Reports: Hx Arthritis - THUMBS, Other Musculoskeletal History - RIGHT SHOULDER IMPINGEMENT Denies: Hx Rheumatoid Arthritis, Hx Osteoporosis Sensory History: Reports: Hx Contacts or Glasses - GLASSES Denies: Hx Legally Blind, Hx Deafness, Hx Hearing Aid Opthamlomology History: Reports: Hx Contacts or Glasses - GLASSES Denies: Hx Legally Blind EENT History: Denies: Hx Deafness Neurological History: Reports: Hx Nerve Disease - NEUROPATHY BILATERAL FEET Psychiatric History: Reports: Hx Anxiety - ON MEDICATION, Hx Depression - ON MEDICATION WELL CONTROLLED Denies: Hx Panic Disorder - Surgical History Surgical History: Yes Surgery Procedure, Year, and Place: 11/2011 [facility]- (right) carpal tunnel,. 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 TEENAGER; FRACTURED ARM. 1970s FRACTURED. L 4th finger trigger finger release. bilateral wrist - basal joint suture suspension Hx Anesthesia Reactions: No Infectious Disease History: No Infectious Disease History: Reports: Hx Hepatitis - Hx OF 20 + YEARS AGO, Hx Human Immunodeficiency Virus (HIV), History Other Infectious Disease - HIV, Traveled Outside the in Last 30 Days - [place] Denies: Hx Clostridium Difficile, Hx of Known/Suspected MRSA, Hx Shingles, Hx Tuberculosis, Hx Known/Suspected VRE - Family History Known Family History: Positive: Cardiac Disease - Social History Occupation: Retired Lives: Alone Alcohol Use: Occasionally Alcohol Amount: 2 GLASSES/MONTH Hx Substance Use: Yes Substance Use Type: Reports: Marijuana Substance Use Comment - Amount & Last Used: once a week Hx Tobacco Use: Yes Smoking Status (MU): Former Smoker Type: Cigarettes Amount Used/How Often: 1 ppd Length of Time of Smoking/Using Tobacco: 5 years Have You Smoked in the Last Year: No Review of Systems Positive: Other - Positive "flushed" sensation. Negative: Fever, Chills Negative: Photophobia, Blurred Vision, Erythema Negative: Sore Throat Negative: Chest Pain Negative: Shortness Of Breath, Cough Positive: Vomiting, Nausea. Negative: Abdominal Pain Negative: dysuria, hematuria Positive: Myalgia - Bilateral LE. Negative: Edema Negative: Rash Neurological: Other - Negative dizziness or lightheadedness Positive: Headache. Negative: Paresthesia, Numbness All Other Systems Reviewed And Are Negative: Yes Physical Exam - Summary Physical Exam Summary: Constitutional: Well-developed, Well-nourished, Alert. (-) Distressed Skin: Warm, Dry HENT: Normocephalic; Atraumatic Eyes: Conjunctiva normal Neck: Musculoskeletal ROM normal neck. (-) JVD, (-) Stridor, (-) Tracheal deviation Cardio: Rhythm regular, rate normal, Heart sounds normal; Intact distal pulses; The pedal pulses are 2+ and symmetric. Radial pulses are 2+ and symmetric. (-) Murmur Pulmonary/Chest wall: Effort normal. (-) Respiratory distress, (-) Wheezes, (-) Rales Abd: Soft. (-) Tenderness, (-) Distension, (-) Guarding, (-) Rebound Musculoskeletal: (-) Edema. Discomfort with lateral neck rotation to the left. Lymph: (-) Cervical adenopathy Neuro: Alert, Oriented x3, Strength normal, Cranial nerves II-XII are grossly intact. (-) Dysmetria, (-) Nystagmus, (-) Ataxia by finger to nose testing, (-) Sensory deficit. Psych: Mood and affect Normal Triage Information Reviewed: Yes Vital Signs On Initial Exam: Initial Vitals Temp Pulse Resp BP Pulse Ox 97.8 F 86 16 155/95 97 02/03/19 17:18 02/03/19 17:18 02/03/19 17:18 02/03/19 17:18 02/03/19 17:18 Vital Signs Reviewed: Yes - Lana Coma Scale Best Eye Response: 4 - Spontaneous Best Motor Response: 6 - Obeys Commands Best Verbal Response: 5 - Oriented Coma Scale Total: 15 Procedures - Sedation Patient Received Moderate/Deep Sedation with Procedure: No Diagnostics - Vital Signs Vital Signs Temp Pulse Resp BP Pulse Ox 02/03/19 17:18 97.8 F 86 16 155/95 97 - Laboratory Result Diagrams: 02/03/19 19:11 02/03/19 19:07 Lab Statement: Any lab studies that have been ordered have been reviewed, and results considered in the medical decision making process. - CT Brain CT CT Interpretation Completed By: Radiologist Summary of CT Findings: Brain CT IMPRESSION: No acute intracranial abnormality. Reviewed by Dr. Hodge. - EKG 19:09 Cardiac Rate: NL - 84 BPM EKG Rhythm: Sinus Rhythm ST Segment: Normal Ectopy: None Summary of EKG Findings: EKG at 19:09 shows 84 BPM with normal sinus rhythm, no STEMI. Reviewed and interpreted by Dr. Hodge. Re-Evaluation - Re-Evaluation First Eval Re-Evaluation Time: 19:56 Change: Unchanged Comment: At 19:56, no change in headache with blood pressure control. Second Eval Re-Evaluation Time: 20:44 Change: Improved Comment: At 20:44, patient has had some relief of neck discomfort and frontal headache. I will give a 3rd round of muscle relaxers. Headache Course/Dx - Course Course Of Treatment: Patient is a 68 y/o M presenting to the ED for a chief complaint of headache that began 4 days ago. Patient was seen at [facility] on 02/03/19 and prescribed Flexaril without relief. Since 01/30/19, patient describes he began to have a headache with a "splitting" sensation that starts at the occipital area, radiating to the frontal area. He rates his current pain as 7/10 in severity, but the pain was previously 10/10 in severity. He also notes 2 episodes of nausea and vomiting, once before going to [facility] and the other after taking Flexaril, and a "flushed" sensation. Patient also reports balance problems for several years and bilateral LE pain that he attributes to getting older. Patient denies any fever, chills, erythema of eyes, sore throat, blurred vision, photophobia, CP, SOB, cough, abdominal pain, dysuria, hematuria, edema, rash, paresthesia, numbness, lightheadedness, or dizziness. Patient denies any aggravating or alleviating factors. His headache first began one year ago and he complained of the headache to his PCP who recommended physical therapy. Patient completed 2 weeks of physical therapy and had improvement of his headache. He went on a trip to [place] for 10 days without recurrence of his headache. He notes seeing a chiropractor in the past, but not for his current symptoms. Patient denies seeking prior treatment for migraines, seeing a neurologist for his headache, or head trauma. PMHx is significant for HIV that has been undetectable for 10 years. He denies taking any medications for HTN. Patient denies alcohol or tobacco use. He has an appointment with Dr. Samantha Jessica on 02/04/19. On exam, discomfort with lateral neck rotation to the left. In the ED course, patient was given Decadron 8 mg IV SLOW, Valium 2.5 mg IV, valium 5 mg IV, Toradol 30 mg IV PUSH, Reglan 10 mg IV SLOW, Lopressor 5 mg IV and fluids. Laboratory abnormal findings: MCH 33, MPV 7.1, creatinine 1.21, glucose 130. EKG at 19:09 shows 84 BPM with normal sinus rhythm, no STEMI. Brain CT IMPRESSION: No acute intracranial abnormality. At 19:56, no change in headache with blood pressure control. At 20:44, patient has had some relief of neck discomfort and frontal headache. I will give a 3rd round of muscle relaxers. Patient will be a sign out at 22:00 on 02/03/[address] Nury Mustafa MD from Dr. Inocente Hodge MD at shift change, pending therapeutic response, further workup, and disposition. - Diagnoses Provider Diagnoses: Hypertension, Headache Discharge ED - Sign-Out/Discharge Documenting (check all that apply): Sign-Out Patient Signing out patient TO: Nury Mustafa - Patient will be a sign out at 22:00 on 02/03/[address] Nury Mustafa MD from Dr. Inocente Hodge MD at shift change, pending therapeutic response, further workup, and disposition. - Discharge Plan Condition: Stable Prescriptions: Lisinopril TAB* [Prinivil TAB 10 MG*] 10 mg PO DAILY #14 tab Referrals: Samantha Jessica MD [Primary Care Provider] - Additional Instructions: Take your prescribed hypertension medication. - Attestation Statements Document Initiated by Scribe: Yes Documenting Scribe: Hanna Rodriguez Provider For Whom Scribe is Documenting (Include Credential): Inocente Hodge MD Scribe Attestation: I, Hanna Amquy, scribed for Inocente Hodge MD on 02/03/19 at 2052. Status of Scribe Document: Ready
[2019-02-03] MEDS ORDERED: Metoprolol Tartrate IV* 1 MG/ML 5 ML VIAL IV ONE (18:45)
[2019-02-03] MEDS ORDERED: NS 0.9% 1000 ML** 1,000 ML IV ONE (18:45)
[2019-02-03 19:17] LABS: ABS Eosinophils 0.1 10^3/ul (0-0.6); ABS Lymphocytes 1.1 10^3/ul (1.0-4.8); ABS Monocytes 0.5 10^3/ul (0-0.8); ABS Neutrophils 4.6 10^3/ul (1.5-7.7); Eosinophil % 0.8 %; Hematocrit 42 % (42-52); Lymphocyte % 18.1 %; Mean Corpuscular HGB Conc 36 g/dL (31-36); Mean Corpuscular Hemoglobin 33 pg (27-31); Mean Corpuscular Volume 91 fL (80-94); Mean Platelet Volume 7.1 fL (7.4-10.4); Nucleated Red Blood Cells % 0.2; Platelet Count 189 10^3/uL (150-450); Red Blood Count 4.62 10^6 /uL (4.18-5.48); Red Cell Distribution Width 14 % (10-15); White Blood Count 6.3 10^3/uL (3.5-10.8)
[2019-02-03 19:34] LABS: Albumin 4.2 g/dL (3.2-5.2); Albumin/Globulin Ratio 1.4 (1-3); BUN/Creatinine Ratio 17.4 (8-20); C Reactive Protein 6.53 mg/L (<8.01); Calcium 9.5 mg/dL (8.6-10.3); EGFR African American 71.9 (>60); EGFR Non-African American 59.5 (>60); Globulin 2.9 g/dL (2-4); Potassium 3.9 mmol/L (3.5-5.0); Total Bilirubin 0.9 mg/dL (0.2-1.0); Total Protein 7.1 g/dL (6.4-8.9)
[2019-02-03] MEDS ORDERED: Ketorolac INJ* 30 MG/ML 1 ML VIAL IV PUSH ONE (19:56)
[2019-02-03] MEDS ORDERED: Diazepam INJ CARPUJECT* 5 MG/ML IV ONE ×3 (19:56→20:42)
[2019-02-03 20:00] LABS: TSH (Thyroid Stimulating Horm) 1.43 mcIU/mL (0.34-5.60)
[2019-02-03] MEDS ORDERED: Metoclopramide IV* 5 MG/ML 2 ML VIAL IV SLOW PU ONE (20:41)
[2019-02-03] MEDS ORDERED: Dexamethasone IV* 4 MG/ML 1 ML (4 MG) IV SLOW PU ONE (20:42)
--- NOTE | 2019-02-03 21:46 | ED ---
Progress - Progress Note Progress Note: Patient is received as a sign-out from Dr. Hodge to Dr. Mustafa at 02/03/19 2200 shift change pending response to medications, further workup as needed, and disposition. Re-Evaluation - Re-Evaluation First Eval Re-Evaluation Time: 19:56 Change: Unchanged Comment: At 19:56, no change in headache with blood pressure control. Second Eval Re-Evaluation Time: 20:44 Change: Improved Comment: At 20:44, patient has had some relief of neck discomfort and frontal headache. I will give a 3rd round of muscle relaxers. Third Eval Re-Evaluation Time: 22:12 Change: Improved Comment: Patient reports Sx are improved but not completely resolved at present. Fourth Eval Re-Evaluation Time: 22:32 Change: Improved Comment: Discussed results with the patient and Sx are resolved. Discussed symptoms that warrant immediate return to ED. Course/Dx - Diagnoses Provider Diagnoses: Hypertension, Headache Discharge ED - Sign-Out/Discharge Documenting (check all that apply): Patient Departure - discharge , Receiving Sign-Out Receiving patient FROM: Inocente Hodge - Discharge Plan Condition: Stable Disposition: HOME Prescriptions: Lisinopril TAB* [Prinivil TAB 10 MG*] 10 mg PO DAILY #14 tab Patient Education Materials: Hypertension (ED), General Headache (ED) Referrals: Samantha Jessica MD [Primary Care Provider] - Additional Instructions: TAKE YOUR PRESCRIBED HYPERTENSION MEDICATION. PLEASE RETURN TO ED FOR ANY NEW OR CONCERNING SYMPTOMS. PLEASE FOLLOW UP WITH YOUR PRIMARY CARE PHYSICIAN WITHIN THREE DAYS. - Billing Disposition and Condition Condition: STABLE Disposition: Home - Attestation Statements Document Initiated by Sy: Yes Documenting Scribe: CECILE RIVERA Provider For Whom Sy is Documenting (Include Credential): ANGI MUSTAFA MD Scribe Attestation: I, CECILE RIVERA, scribed for ANGI MUSTAFA MD on 02/04/19 at 0252. Scribe Documentation Reviewed: Yes Provider Attestation: The documentation as recorded by the CECILE rivera accurately reflects the service I personally performed and the decisions made by me, ANGI MUSTAFA MD Status of Scribe Document: Viewed
[2019-02-03 22:52] VITALS: BP 154/93
== END 2019-02-03 22:46 | disposition home or self-care (01) ==
LOC: ED 17:16
DX: I10 Essential (primary) hypertension (principal); Z21 Asymptomatic human immunodeficiency virus [HIV] infection status; J45.909 Unspecified asthma, uncomplicated; F41.9 Anxiety disorder, unspecified; F32.9 Major depressive disorder, single episode, unspecified; Z87.891 Personal history of nicotine dependence; Z79.899 Other long term (current) drug therapy
CPT/HCPCS: 36415; 70450; 80053; 83605; 83735; 84443; 84484; 85025; 86140; 93005; 96361; 96374; 96375; 96376; 99284; J1100; J1885; J2765; J3360; J3490